=== PATIENT | female | born 2005 | race Two or more races ===

== ENCOUNTER 2024-08-05 23:52 | Emergency (ER) | payer BC ==
[~2024-08-05] VITALS: Ht 172.7 cm; Wt 97.5 kg
[2024-08-06] MEDS ORDERED: KETOROLAC TROMETHAMINE 60 MG VIAL IM ONE ×2 (02:30→02:48)
[2024-08-06] MEDS ORDERED: GUAIFENESIN/DEXTROMETHORPHAN 10ML BLIST.PACK PO ONE ×2 (02:30→02:49)
[2024-08-06] MEDS ORDERED: DEXAMETHASONE SODIUM PHOSPHATE 4 MG/ML VIAL IM ONE (02:30)
[2024-08-06] MEDS ORDERED: DEXAMETHASONE SODIUM PHOSPHATE 4 MG/ML VIAL ONE (02:49)
[2024-08-06 03:56] LABS: HEMATOCRIT 34.9 % (36.0-45.00); HEMOGLOBIN 12.1 g/dL (12.0-15.00); MEAN CELL VOLUME 81.6 fL (80.00-100.00); MEAN CORPUSCULAR HEMOGLOBIN 28.3 pg (27.00-32.0); MEAN CORPUSCULAR HGB CONC 34.6 g/dl (32.0-36.0); PLATELET COUNT 337 K/uL (150-450); RED BLOOD COUNT 4.27 M/uL (4.00-6.00)
[2024-08-06] MEDS ORDERED: OSELTAMIVIR PHOSPHATE 75 MG CAPSULE PO ONE ×2 (05:30)
[2024-08-06] MEDS ORDERED: TUSNEL LIQUID178 ML PO (05:32)
[2024-08-06] MEDS ORDERED: DOLOGEN CAPLET1 EACH PO (05:32)
[2024-08-06] MEDS ORDERED: OSEL75CA PO (05:32)
== END 2024-08-06 | disposition home or self-care (01) ==
LOC: ER 23:54
PROVIDERS: General Practice
DX: R53.81 Other malaise (principal); J10.1 Influenza due to other identified influenza virus with other respiratory manifestations; Z20.822 Contact with and (suspected) exposure to COVID-19